=== PATIENT | female | born 1950 | race Caucasian/White ===

== ENCOUNTER → 2021-02-26 13:27 | Outpatient (CLI) | payer MEDICARE, OTHER, SELFPAY ==
[2021-02-26 16:13] LABS: COVID19 -Nasal RAPID Negative (Negative)
== END ==
PROVIDERS: Visit Provider Physician Assistant
DX: Z20.822 Contact with and (suspected) exposure to COVID-19 (principal); Z01.812 Encounter for preprocedural laboratory examination
CPT/HCPCS: 87635; C9803

== ENCOUNTER 2021-02-27 12:35 | Day surgery (SDC) | payer MEDICARE, OTHER, SELFPAY ==
[2021-02-27 13:22] VITALS: BP 151/89; PULSE 85; RESP 16; TEMP 36.6; O2SAT 99; BMI 25.0
[2021-02-27] MEDS: SODIUM CHLORIDE 0.9% 1,000 ML 84 ML IV (13:38)
--- NOTE | 2021-02-27 14:19 | PM.HP.1 ---
History of Present Illness History of Present Illness Date Patient Seen: 02/27/21 Time Patient Seen: 14:19 Chief complaint: SCREENING COLONOSCOPY W/POSS BX Narrative: I reviewed Cates prior colonoscopy from June 2016. She had an excellent bowel prep. No polyps were identified at that exam. She had some diverticulosis and a tortuous colon mild internal hemorrhoids. I recommended a repeat exam in 10 years time sooner should symptoms warrant. The patient presents today for colonoscopy but denies any change in bowel habit. No abdominal pain. No bleeding. She does not have any concerning GI symptoms that she wishes further evaluation. I explained that from a screening perspective she does not meet criteria. Patient was actually excited to learn this and happy to not proceed with colonoscopy today. Patient History Family & Social History Social History: household members spouse Tobacco & Substance use: Smoking Status Never smoker alcohol intake never Substance Use Type does not use Comment: No family history of colon cancer. Meds Home Medications and Allergies Home Medications Medication Instructions Recorded Confirmed Type rosuvastatin 40 mg tablet 40 mg PO DAILY 02/27/21 02/27/21 History triamterene 37.5 1 tab PO DAILY 02/27/21 02/27/21 History mg-hydrochlorothiazide 25 mg tablet Allergies Allergy/AdvReac Type Severity Reaction Status Date / Time No Known Drug Allergies Allergy Verified 02/27/21 13:15 Review of Systems Gastrointestinal Gastrointestinal: Reports as per HPI Exam Vital Signs (past 8 hours): - 02/27/21 13:22 Temperature 97.8 F Pulse Rate 85 Respiratory Rate 16 Blood Pressure 151/89 H Pulse Oximetry 99 Oxygen Delivery Method Room Air Const General: cooperative, healthy appearing and comfortable Nutritional Appearance: average body habitus and well nourished Orientation: alert and awake [facility] Head: normal to inspection Eyes General: appearance normal, both eyes and all related structures Neck Neck: normal visual inspection Chest Chest: normal inspection of the chest Resp Effort & Inspection: normal respiratory effort GI Inspection: normal to inspection Skin General: no rashes or lesions noted Neuro General: patient alert Extrem General: normal to inspection Psych Appearance: grossly normal Assessment & Plan Assessment & Plan narrative: This is a 71-year-old female with an up-to-date colon cancer screening exam (June 2016). She is asymptomatic. He colonoscopy that was planned for today is canceled.
== END 2021-02-28 | disposition home or self-care (01) ==
PROVIDERS: Referring Provider Internal Medicine Gastroenterology; Visit Provider Internal Medicine Gastroenterology
DX: Z12.11 Encounter for screening for malignant neoplasm of colon (principal); Z53.09 Procedure and treatment not carried out because of other contraindication
CPT/HCPCS: G0121; J2250; J3010